=== PATIENT | female | born 1970 | race African-American/Black ===

== ENCOUNTER 2018-01-06 18:57 | Inpatient (IN) ==
[2018-01-06] MEDS ORDERED: PROPOFOL 1,000 MG/100 ML BOTTLE IV ONE (19:03)
[2018-01-06] MEDS ORDERED: VECURONIUM 10 MG VIAL IV ONE (19:03)
[2018-01-06] MEDS ORDERED: methylPREDNISolone SOD SUC 125 MG/2 ML VIAL IV STA (19:21)
[2018-01-06] MEDS ORDERED: ALBUTEROL 2.5 MG/3 ML NEB RESP TX STA (19:21)
[2018-01-06] MEDS: PROPOFOL 1,000 MG/100 ML BOTTLE IV SCH ×2 (19:28→23:34)
[2018-01-06 19:48] LABS: Basophils % 0.3 % (0.0-0.8); Eosinophils % 0.1 % (0.00-10.9); Hematocrit 40.3 VOL% (35.7-47.0); Hemoglobin 13.7 GM/DL (12.0-16.0); Immature Granulocytes % 0.6 %; Immature Granulocytes Absolute 0.07 #; Lymphocytes # 1.1 10*3/uL (1.4-4.0); Lymphocytes % 9.4 % (21.3-54.2); Mean Corpuscular Hemoglobin 36 PG (27-34); Mean Corpuscular Volume 107.2 FL (87-102); Mean Platelet Volume 8.7 FL (9.6-12.0); Monocytes # 0.2 10*3/uL (0.11-0.8); Monocytes % 1.4 % (1.7-12.7); Neutrophils # 10.4 10*3/uL (1.4-7.4); Neutrophils % 88.2 % (38.7-73.9); Platelet Count 291 T/CUMM (130-400); Red Blood Count 3.76 MC/CUMM (3.8-5.5); Red Cell Distribution Width 12.6 % (9.3-17.3); White Blood Count 11.8 T/CUMM (4-12)
[2018-01-06 19:55] LABS: ABG Base Excess -10.4 MMOL/L (-2.5-2.5); ABG HCO3 16.4 MMOL/L (20-26); ABG Oxygen Saturation 99.1 % (95-100); ABG PCO2 35.8 MM HG (35-48); ABG PH 7.261 (7.35-7.45); ABG TCO2 14.2 MMOL/L (23-27); Allen Test Positive; Pt O2 Delivery Device Ventilator
[2018-01-06 20:00] LABS: Apearance,Urine CLEAR (Clear); Bacteria,Urine Occasional /HPF (Few); Bilirubin,Urine Negative (Negative); Blood, Urine Negative (Negative); Glucose,Urine (UA) Negative (Negative); Hyaline Casts,Urine 3 /LPF (0-3); Ketones,Urine 5 mg/dL (Negative); Mucus,Urine Occasional /LPF (Occasional); Nitrite,Urine Positive (Negative); Protein,Urine Negative; Squamous Epithelial Cell,Urine Occasional /HPF (0-10); Urine Color Yellow (Yellow); Urine Specific Gravity 1.008 (1.001-1.035); Urine Urobilinogen < 2.0 EU/DL (0.2-1.0); WBC,Urine 1 /HPF (0-6)
[2018-01-06 20:18] LABS: Alanine Aminotransferase 27 U/L (13-56); Albumin 3.8 G/DL (3.4-5.0); Alkaline Phosphatase 70 U/L (45-117); Aspartate Amino Transferase 54 U/L (0-37); Blood Urea Nitrogen 9 MG/DL (7-18); Glucose 74 MG/DL (74-106); Osmolality,Calculated 278.3 MOS/KG (273-304); Potassium 3.6 MMOL/L (3.5-5.1); Sodium 141 MMOL/L (136-145); Total Protein 7.7 G/DL (6.4-8.3); Troponin I < 0.015 NG/ML (0.00-0.045)
[2018-01-06 20:37] LABS: Barbiturates Screen,Urine Negative (Negative); Benzodiazepines Screen,Urine Positive (Negative); Cannabinoid Screen,Urine Negative (Negative); Opiate Screen,Urine Negative (Negative); Phencyclidine Screen,Urine Negative (Negative)
[2018-01-06] MEDS ORDERED: DEXTROSE 50% 25 GM/50 ML SYRINGE IV ONE (21:15)
[2018-01-06] MEDS ORDERED: ACETAMINOPHEN 325 MG TABLET PO PRN (21:59)
[2018-01-06] MEDS ORDERED: ONDANSETRON 4 MG/2 ML VIAL IV PRN (21:59)
[2018-01-06] MEDS ORDERED: ALBUTEROL 2.5 MG/3 ML NEB RESP TX PRN (21:59)
[2018-01-06] MEDS ORDERED: SODIUM CHLORIDE 0.9% 1,000 ML IV SCH (22:00)
[2018-01-06] MEDS ORDERED: THIAMINE INJ 100 MG, FOLIC ACID INJ 1 MG, MULTIVITAMIN INJ 10 ML in SODIUM CHLORIDE 0.9... IV ONE (22:30)
[2018-01-06] MEDS: ENOXAPARIN 40 MG/0.4 ML SYRINGE SUBCUT SCH (22:57)
[2018-01-06] MEDS: FAMOTIDINE 20 MG/2 ML VIAL IV SCH (22:58)
[2018-01-06] MEDS ORDERED: diphenhydrAMINE 50 MG/1 ML VIAL IV ONE (23:00)
[2018-01-06] MEDS ORDERED: diphenhydrAMINE CAP 50 MG CAPSULE PO ONE (23:00)
[2018-01-06] MEDS: MIDAZOLAM 100 MG in SODIUM CHLORIDE 0.9% 80 ML IV PRN (23:23)
[2018-01-07] MEDS ORDERED: diphenhydrAMINE 50 MG/1 ML VIAL IV SCH
[2018-01-07] MEDS: SODIUM BICARB INJ 150 MEQ in STERILE WATER INJ 850 ML IV SCH ×2 (00:18→11:26)
[2018-01-07] MEDS: cefTRIAXone 1,000 MG in SYRINGE 1 EACH IV SCH ×2 (00:23→23:24)
[2018-01-07] MEDS: AZITHROMYCIN INJ 500 MG in SODIUM CHLORIDE 0.9% 250 ML IV SCH (02:36)
[2018-01-07] MEDS: PROPOFOL 1,000 MG/100 ML BOTTLE IV SCH ×4 (03:12→19:57)
[2018-01-07 05:10] LABS: ABG Base Excess -3.7 MMOL/L (-2.5-2.5); ABG HCO3 21.3 MMOL/L (20-26); ABG Oxygen Saturation 99.6 % (95-100); ABG PCO2 36.9 MM HG (35-48); ABG PH 7.365 (7.35-7.45); ABG TCO2 18.5 MMOL/L (23-27)
[2018-01-07] MEDS: diphenhydrAMINE CAP 25 MG CAPSULE PO SCH ×4 (05:24→23:24)
[2018-01-07] MEDS: methylPREDNISolone SOD SUC 40 MG/1 ML VIAL IV SCH ×3 (05:24→20:14)
[2018-01-07 05:38] LABS: Basophils % 0.1 % (0.0-0.8); Eosinophils % 0.2 % (0.00-10.9); Hematocrit 33.8 VOL% (35.7-47.0); Hemoglobin 11.7 GM/DL (12.0-16.0); Immature Granulocytes % 0.6 %; Immature Granulocytes Absolute 0.06 #; Lymphocytes # 0.8 10*3/uL (1.4-4.0); Lymphocytes % 7.2 % (21.3-54.2); Mean Corpuscular HGB Conc 34.6 GM/DL (32-36); Mean Corpuscular Hemoglobin 37 PG (27-34); Mean Corpuscular Volume 105.6 FL (87-102); Mean Platelet Volume 10.8 FL (9.6-12.0); Monocytes # 0.2 10*3/uL (0.11-0.8); Monocytes % 1.6 % (1.7-12.7); Neutrophils # 9.8 10*3/uL (1.4-7.4); Neutrophils % 90.3 % (38.7-73.9); Platelet Count 141 T/CUMM (130-400); Red Cell Distribution Width 12.7 % (9.3-17.3); White Blood Count 10.8 T/CUMM (4-12)
[2018-01-07] MEDS ORDERED: DEXTROSE 50% 25 GM/50 ML VIAL IV PRN (05:38)
[2018-01-07 05:54] LABS: Osmolality,Calculated 278.4 MOS/KG (273-304); Potassium 4.3 MMOL/L (3.5-5.1)
[2018-01-07 06:13] LABS: Platelet Estimate Adequate
[2018-01-07 06:56] LABS: Anisocytosis 1+; Macrocytosis 1+
[2018-01-07] MEDS ORDERED: FOLIC ACID IV SCH (10:00)
[2018-01-07] MEDS ORDERED: [UNRECOGNIZED DRUG - OTHER] IV SCH (10:00)
[2018-01-07] MEDS ORDERED: THIAMINE IV SCH (10:00)
[2018-01-07] MEDS ORDERED: MULTIVITAMIN IV SCH (10:00)
[2018-01-07] MEDS: FAMOTIDINE 20 MG/2 ML VIAL IV SCH ×2 (11:06→21:03)
[2018-01-07] MEDS: MULTIVITAMIN INJ 10 ML, FOLIC ACID INJ 1 MG, THIAMINE INJ 100 MG in SODIUM CHLORIDE 0.9... IV SCH (11:07)
[2018-01-07] MEDS: ENOXAPARIN 40 MG/0.4 ML SYRINGE SUBCUT SCH (21:03)
[2018-01-08] MEDS: PROPOFOL 1,000 MG/100 ML BOTTLE IV SCH ×4 (00:29→17:20)
[2018-01-08] MEDS: AZITHROMYCIN INJ 500 MG in SODIUM CHLORIDE 0.9% 250 ML IV SCH (03:09)
[2018-01-08] MEDS: methylPREDNISolone SOD SUC 40 MG/1 ML VIAL IV SCH ×3 (03:09→21:36)
[2018-01-08] MEDS: diphenhydrAMINE CAP 25 MG CAPSULE PO SCH ×3 (04:07→17:53)
[2018-01-08 04:11] LABS: Allen Test Positive; Pt O2 Delivery Device Ventilator
[2018-01-08 04:14] LABS: ABG Base Excess -0.8 MMOL/L (-2.5-2.5); ABG Oxygen Saturation 99.3 % (95-100); ABG PH 7.469 (7.35-7.45)
[2018-01-08 05:22] LABS: Basophils % 0.1 % (0.0-0.8); Eosinophils % 0.1 % (0.00-10.9); Hematocrit 34.7 VOL% (35.7-47.0); Hemoglobin 11.6 GM/DL (12.0-16.0); Immature Granulocytes % 0.5 %; Immature Granulocytes Absolute 0.04 #; Lymphocytes # 0.4 10*3/uL (1.4-4.0); Lymphocytes % 4.4 % (21.3-54.2); Mean Corpuscular HGB Conc 33.4 GM/DL (32-36); Mean Corpuscular Hemoglobin 35 PG (27-34); Mean Corpuscular Volume 105.2 FL (87-102); Mean Platelet Volume 10.4 FL (9.6-12.0); Monocytes # 0.2 10*3/uL (0.11-0.8); Monocytes % 2.8 % (1.7-12.7); Neutrophils # 7.9 10*3/uL (1.4-7.4); Neutrophils % 92.1 % (38.7-73.9); Platelet Count 156 T/CUMM (130-400); White Blood Count 8.6 T/CUMM (4-12)
[2018-01-08 05:34] LABS: Calcium 7.7 MG/DL (8.5-10.1); Osmolality,Calculated 286.4 MOS/KG (273-304); Potassium 3.6 MMOL/L (3.5-5.1)
[2018-01-08 06:37] LABS: Hypochromasia 1+; Lymphocytes 4 % (20-55); Macrocytosis Slight; Platelet Estimate Normal; Segmented Neutrophils 93 % (50-85); Total Cells Counted 100
[2018-01-08] MEDS: MULTIVITAMIN INJ 10 ML, FOLIC ACID INJ 1 MG, THIAMINE INJ 100 MG in SODIUM CHLORIDE 0.9... IV SCH (10:00)
[2018-01-08] MEDS: FAMOTIDINE 20 MG/2 ML VIAL IV SCH ×2 (10:41→21:49)
[2018-01-08] MEDS: MIDAZOLAM 100 MG in SODIUM CHLORIDE 0.9% 80 ML IV PRN (11:03)
[2018-01-08] MEDS: ENOXAPARIN 40 MG/0.4 ML SYRINGE SUBCUT SCH (21:37)
[2018-01-09] MEDS: diphenhydrAMINE CAP 25 MG CAPSULE PO SCH ×5 (00:55→22:23)
[2018-01-09] MEDS: PROPOFOL 1,000 MG/100 ML BOTTLE IV SCH ×2 (00:55→06:56)
[2018-01-09 03:32] LABS: ABG Base Excess 2.7 MMOL/L (-2.5-2.5); ABG HCO3 26.8 MMOL/L (20-26); ABG Oxygen Saturation 99.2 % (95-100); ABG PCO2 37.2 MM HG (35-48); ABG TCO2 23.5 MMOL/L (23-27); Allen Test Positive; Pt O2 Delivery Device Ventilator
[2018-01-09] MEDS: methylPREDNISolone SOD SUC 40 MG/1 ML VIAL IV SCH ×2 (04:16→13:06)
[2018-01-09 04:48] LABS: Osmolality,Calculated 286.1 MOS/KG (273-304); Potassium 4.2 MMOL/L (3.5-5.1)
[2018-01-09 04:52] LABS: Prealbumin 26.4 MG/DL (20-40)
[2018-01-09 08:46] LABS: ABG Base Excess 4.8 MMOL/L (-2.5-2.5); ABG HCO3 28.7 MMOL/L (20-26); ABG Oxygen Saturation 99.4 % (95-100); ABG PCO2 37.1 MM HG (35-48); ABG PH 7.489 (7.35-7.45); ABG TCO2 24.6 MMOL/L (23-27)
[2018-01-09 10:53] LABS: ABG Base Excess 4.3 MMOL/L (-2.5-2.5); ABG HCO3 28.3 MMOL/L (20-26); ABG Oxygen Saturation 99.1 % (95-100); ABG PCO2 39.5 MM HG (35-48); ABG PH 7.463 (7.35-7.45); ABG TCO2 24.8 MMOL/L (23-27)
[2018-01-09] MEDS: FAMOTIDINE 20 MG/2 ML VIAL IV SCH ×2 (11:06→22:23)
[2018-01-09] MEDS: MULTIVITAMIN INJ 10 ML, FOLIC ACID INJ 1 MG, THIAMINE INJ 100 MG in SODIUM CHLORIDE 0.9... IV SCH (11:09)
[2018-01-09] MEDS: ENOXAPARIN 40 MG/0.4 ML SYRINGE SUBCUT SCH (22:23)
[2018-01-10] MEDS: diphenhydrAMINE CAP 25 MG CAPSULE PO SCH ×2 (05:25→09:59)
[2018-01-10 07:20] VITALS: BP 130/73
[2018-01-10] MEDS ORDERED: predniSONE 20 MG TABLET PO SCH (09:00)
[2018-01-10] MEDS: FAMOTIDINE 20 MG/2 ML VIAL IV SCH (09:58)
[2018-01-10] MEDS: MULTIVITAMIN INJ 10 ML, FOLIC ACID INJ 1 MG, THIAMINE INJ 100 MG in SODIUM CHLORIDE 0.9... IV SCH (10:26)
== END 2018-01-10 12:39 | disposition home or self-care (01) | DRG 917 ==
LOC: N.ED 18:57 → N.EDINP 20:56 → SUATTDRO 20:56 → N.ICU 21:48 → N.5E 01-09 15:46
PROVIDERS: ADMIT Internal Medicine; ATTEND Internal Medicine